=== PATIENT | female | born 1975 | race Two or more races ===

== ENCOUNTER 2017-07-08 14:54 | Outpatient (CLI) | payer OTHER | END 2017-07-08 15:06 | disposition home or self-care (01) | LOC: MAMO-SONO 14:54 | DX: N64.4 Mastodynia (principal); Z12.31 Encounter for screening mammogram for malignant neoplasm of breast ==

== ENCOUNTER 2017-08-19 15:05 | Outpatient (CLI) | payer OTHER | END 2017-08-19 22:00 | disposition home or self-care (01) | LOC: RAD 15:05 | DX: M54.9 Dorsalgia, unspecified (principal); M25.551 Pain in right hip; M25.552 Pain in left hip ==

== ENCOUNTER → 2018-06-08 | Outpatient (CLI) | payer OTHER | END | disposition home or self-care (01) | LOC: RAD 501 15:35 | DX: M54.5 Low back pain (principal); M54.16 Radiculopathy, lumbar region; M25.572 Pain in left ankle and joints of left foot; R10.2 Pelvic and perineal pain ==

== ENCOUNTER 2018-07-13 10:03 | Emergency (ER) | payer OTHER ==
[~2018-07-13] VITALS: Ht 152.4 cm; Wt 56.7 kg
== END 2018-07-13 13:24 | disposition home or self-care (01) ==
LOC: ER 10:03
DX: K29.70 Gastritis, unspecified, without bleeding (principal)

== ENCOUNTER 2018-08-24 14:45 | Outpatient (CLI) | payer OTHER | END 2018-08-24 14:53 | disposition home or self-care (01) | LOC: MAMO-SONO 14:45 | DX: N64.4 Mastodynia (principal); Z12.31 Encounter for screening mammogram for malignant neoplasm of breast ==

== ENCOUNTER 2020-05-29 15:23 | Outpatient (CLI) | payer OTHER | END 2020-05-29 15:24 | disposition home or self-care (01) | LOC: PPH VACUNA 15:23 | DX: Z23 Encounter for immunization (principal) ==

== ENCOUNTER 2020-11-13 15:16 | Outpatient (CLI) | payer OTHER | END 2020-11-13 15:22 | disposition home or self-care (01) | LOC: RAD 15:16 | PROVIDERS: ATTEND Specialist | DX: M25.531 Pain in right wrist (principal); M25.532 Pain in left wrist; M25.541 Pain in joints of right hand; M25.542 Pain in joints of left hand ==

== ENCOUNTER 2021-01-14 10:11 | Outpatient (CLI) | payer OTHER | END 2021-01-14 10:20 | disposition home or self-care (01) | LOC: LAB 10:11 | PROVIDERS: ATTEND Orthopaedic Surgery | DX: I10 Essential (primary) hypertension (principal); Z03.818 Encounter for observation for suspected exposure to other biological agents ruled out ==

== ENCOUNTER 2021-01-17 08:43 | Day surgery (SDC) | payer OTHER | END 2021-01-17 15:00 | disposition home or self-care (01) | LOC: U 08:43 → CIR.AMB 08:43 | PROVIDERS: ATTEND Orthopaedic Surgery | DX: M77.11 Lateral epicondylitis, right elbow (principal); Z20.822 Contact with and (suspected) exposure to COVID-19 ==

== ENCOUNTER → 2021-04-15 | Outpatient (CLI) | payer OTHER | END | disposition home or self-care (01) | LOC: SONOGRAMA 14:19 | PROVIDERS: ATTEND Internal Medicine Endocrinology, Diabetes & Metabolism | DX: E04.1 Nontoxic single thyroid nodule (principal) ==

== ENCOUNTER 2023-05-10 17:48 | Emergency (ER) | payer OTHER ==
[~2023-05-10] VITALS: Ht 149.9 cm; Wt 43.5 kg
[2023-05-10] MEDS ORDERED: ATACAND32 MG (18:24)
[2023-05-10] MEDS ORDERED: SYNTHROID50 MCG PO (18:24)
== END 2023-05-10 22:34 | disposition home or self-care (01) ==
LOC: ER 17:49
DX: I10 Essential (primary) hypertension (principal); Z88.6 Allergy status to analgesic agent; Z88.8 Allergy status to other drugs, medicaments and biological substances

== ENCOUNTER 2023-07-15 11:30 | Outpatient (CLI) | payer OTHER ==
[~2023-07-15 11:30] MED LIST: ATACAND32 MG; SYNTHROID50 MCG PO
== END 2023-07-15 11:37 | disposition home or self-care (01) ==
LOC: SONOGRAMA 11:30
PROVIDERS: ATTEND Specialist
DX: Q44.6 Cystic disease of liver (principal)

== ENCOUNTER 2023-07-23 10:24 | Outpatient (CLI) | payer OTHER ==
[2023-07-23] MEDS ORDERED: SYNTHROID75 MCG PO (14:27)
== END 2023-07-23 10:37 | disposition home or self-care (01) ==
LOC: MRI 10:24
PROVIDERS: ATTEND Specialist
DX: K76.89 Other specified diseases of liver (principal)
CPT/HCPCS: 74182

== ENCOUNTER 2023-07-28 05:40 | Day surgery (SDC) | payer OTHER ==
[2023-07-23 10:48] LABS: HEMATOCRIT 38.4 % (36.0-45.00); HEMOGLOBIN 13.4 g/dL (12.0-15.00); MEAN CELL VOLUME 101.1 fL (80.00-100.00); MEAN CORPUSCULAR HEMOGLOBIN 35.2 pg (27.00-32.0); MEAN CORPUSCULAR HGB CONC 34.8 g/dl (32.0-36.0); PLATELET COUNT 207 K/uL (150-450); RED CELL DISTRIBUTION WIDTH 12.4 % (11.5-14.5)
[2023-07-23 10:54] LABS: URINE APPEARANCE Clear; URINE BILIRRUBIN Negative (NEGATIVE); URINE BLOOD Negative; URINE COLOR Yellow; URINE GLUCOSE Negative (NEGATIVE); URINE LEUKOCYTE Negative; URINE NITRATE Negative; URINE PROTEIN Negative (NEGATIVE); URINE UROBILINOGEN 0.2 E.U./dl
[2023-07-23 10:58] LABS: URINE BACTERIA 283.4 uL (0.0-1933); URINE EPITHELIAL CELLS 13.7 uL (0.0-38.8); URINE RBC 7.1 uL (0.0-20.8); URINE WBC 13.9 uL (0.0-23.2)
[2023-07-23 11:05] LABS: INR 0.96; PARTIAL THROMBOPLASTIN TIME 27.8 SECONDS (22.0-34.0); PROTHROMBIN TIME 10.1 SECONDS (9.0-11.5)
[2023-07-23 11:18] LABS: BILIRUBIN TOTAL 0.48 mg/dL (0.3-1.2); CALCIUM 9.3 mg/dL (8.5-10.1); CREATININE SERUM 0.76 mg/dL (0.55-1.02); GFR 81.57; POTASSIUM 4.51 mEq/L (3.5-5.1); TSH 0.454 uIU/mL (0.358-3.74)
[~2023-07-28 05:40] MED LIST changes: +SYNTHROID75 MCG PO
[2023-07-28] MEDS ORDERED: CEFAZOLIN SODIUM 1,000 MG in 0.9 % SODIUM CHLORIDE 50 ML IV ONE (08:15)
[2023-07-28] MEDS ORDERED: CEFAZOLIN SODIUM 1,000 MG VIAL ONE ×2 (08:30→12:56)
[2023-07-28] MEDS ORDERED: CEFAZOLIN SODIUM 1,000 MG VIAL IV SCH (12:00)
[2023-07-28] MEDS ORDERED: FAMOTIDINE/PF 20 MG/10 ML SYRINGE IV SCH (12:00)
[2023-07-28] MEDS ORDERED: FAMOTIDINE/PF 20 MG/2 ML VIAL ONE (12:57)
== END 2023-07-28 13:55 | disposition home or self-care (01) ==
LOC: CIR.AMB 05:40
PROVIDERS: ATTEND Specialist
DX: K42.9 Umbilical hernia without obstruction or gangrene (principal); Z88.6 Allergy status to analgesic agent

== ENCOUNTER 2024-01-14 06:44 | Day surgery (SDC) | payer OTHER ==
[2024-01-07 07:59] LABS: PH,URINE 6.5 (5.0-8.0); URINE APPEARANCE Clear; URINE BILIRRUBIN Negative (NEGATIVE); URINE BLOOD Negative; URINE COLOR Yellow; URINE GLUCOSE Negative (NEGATIVE); URINE KETONE Negative (NEGATIVE); URINE LEUKOCYTE Negative; URINE NITRATE Negative; URINE PROTEIN Negative (NEGATIVE); URINE UROBILINOGEN 0.2 E.U./dl
[2024-01-07 08:02] LABS: URINE BACTERIA 149.8 uL (0.0-1933); URINE EPITHELIAL CELLS 5.5 uL (0.0-38.8); URINE RBC 5.3 uL (0.0-20.8); URINE WBC 3.7 uL (0.0-23.2)
[2024-01-07 08:05] LABS: HEMATOCRIT 35.3 % (36.0-45.00); HEMOGLOBIN 12.1 g/dL (12.0-15.00); MEAN CELL VOLUME 105.7 fL (80.00-100.00); MEAN CORPUSCULAR HEMOGLOBIN 36.3 pg (27.00-32.0); MEAN CORPUSCULAR HGB CONC 34.3 g/dl (32.0-36.0); PLATELET COUNT 252 K/uL (150-450); RED BLOOD COUNT 3.34 M/uL (4.00-6.00); RED CELL DISTRIBUTION WIDTH 13.5 % (11.5-14.5)
[2024-01-07 08:20] LABS: INR 0.98; PARTIAL THROMBOPLASTIN TIME 26.4 SECONDS (22.0-34.0)
[2024-01-07 08:21] LABS: PROTHROMBIN TIME 10.3 SECONDS (9.0-11.5)
[2024-01-07 08:37] LABS: ALBUMIN 3.5 gm/dL (3.4-5.0); BILIRUBIN TOTAL 0.31 mg/dL (0.3-1.2); CREATININE SERUM 0.68 mg/dL (0.55-1.02); GFR 92.74; GLOBULINA 3.1 G/DL (2.4-3.5); POTASSIUM 4.77 mEq/L (3.5-5.1); TOTAL PROTEIN 6.6 gm/dL (6.4-8.2)
[~2024-01-14 06:44] MED LIST changes: +PANTOPRAZOLE SO40 MG
[2024-01-14] MEDS ORDERED: CEFAZOLIN SODIUM 1,000 MG VIAL ONE (08:42)
[2024-01-14] MEDS ORDERED: MIRALAX17 GM PO (10:02)
[2024-01-14] MEDS ORDERED: TRAMADOL HCL50 MG PO (10:02)
[2024-01-14] MEDS ORDERED: TYLENOL ARTHRI650 MG PO (10:02)
[2024-01-14] MEDS ORDERED: KETO10TA2 PO (10:02)
[2024-01-14] MEDS ORDERED: BUPIVACAINE HCL/MPF 0.5% 30ML VIAL ONE (10:14)
== END 2024-01-14 15:25 | disposition home or self-care (01) ==
LOC: CIR.AMB 06:44
PROVIDERS: ATTEND Surgery
DX: K40.90 Unilateral inguinal hernia, without obstruction or gangrene, not specified as recurrent (principal); K42.0 Umbilical hernia with obstruction, without gangrene; Z88.6 Allergy status to analgesic agent; I10 Essential (primary) hypertension

== ENCOUNTER 2024-01-22 09:23 | Outpatient (CLI) | payer OTHER ==
[~2024-01-22 09:23] MED LIST changes: +KETO10TA2 PO; +MIRALAX17 GM PO; +TRAMADOL HCL50 MG PO; +TYLENOL ARTHRI650 MG PO
== END 2024-01-22 09:27 | disposition home or self-care (01) ==
LOC: NUCLEAR 09:23
PROVIDERS: ATTEND Internal Medicine
DX: I11.9 Hypertensive heart disease without heart failure (principal)